=== PATIENT | male | born 1950 | race African-American/Black ===

== ENCOUNTER 2021-01-29 17:38 | Emergency (ER) | payer MEDICARE, OTHER ==
[~2021-01-29] VITALS: Ht 172.7 cm; Wt 75.0 kg
[2021-01-29 17:58] VITALS: BP 133/93
[2021-01-29] MEDS ORDERED: FUROSEMIDE 40MG/4ML VIAL IV ONE (20:15)
[2021-01-29] MEDS ORDERED: NITROGLYCERIN 0.4MG TABLET SL SL PRN (20:15)
[2021-01-29] MEDS ORDERED: ASPIRIN 81MG TABLET PO ONE (20:15)
[2021-01-29 20:40] LABS: HEMATOCRIT. 46.6 % (42.0-52.0); MEAN CORPUSCULAR HEMOGLOBIN 31.1 pg (28.0-32.0); MEAN CORPUSCULAR VOLUME 96.6 fL (80.0-94.0); PLATELET 199 x1000/uL (130-400); RED BLOOD CELL COUNT 4.82 mill/uL (4.7-6.1); RED CELL DISTRIBUTION WIDTH 16.9 % (11.6-14.6)
[2021-01-29 20:47] LABS: CHLORIDE 108 mEq/L (98-107)
[2021-01-29 20:51] LABS: ETHANOL BLOOD < 10 mg/dL
[2021-01-29 21:03] LABS: PLATELET ESTIMATE NORMAL
== END 2021-01-29 21:15 | disposition left against medical advice (07) ==
LOC: ER 17:38
DX: I21.3 ST elevation (STEMI) myocardial infarction of unspecified site (principal); I10 Essential (primary) hypertension; I11.0 Hypertensive heart disease with heart failure; I50.9 Heart failure, unspecified
CPT/HCPCS: 36415; 71045; 80053; 80320; 83880; 84484; 85025; 99284; G0480